=== PATIENT | female | born 1940 | race Caucasian/White ===

== ENCOUNTER 2023-10-22 22:01 | Inpatient (IN) | payer MEDICARE, OTHER, SELFPAY ==
[2023-10-22] VITALS (7 sets, daily range): BP systolic 95–134; BP diastolic 54–70; BMI 21.8
[2023-10-22 14:01] LABS: % Basophils 0.3 % (0-2); % Eosinophils 0.5 % (0-6); % Immature Granulocytes 1.1 % (0-0.5); % Lymphocytes 12.5 % (20.5-51.1); % Neutrophils 68.6 % (42.2-75.2); Absolute Immature Granulocytes 0.1 10^3/uL (0-0.05); Absolute Lymphocytes 0.8 10^3/uL (1.2-3.4); Absolute Monocytes 1.1 10^3/uL (0.1-0.6); Absolute Neutrophils 4.4 10^3/uL (1.4-6.5); Hematocrit 39.6 % (37.0-47.0); Hemoglobin 13.9 g/dL (12.0-16.0); Mean Corp Hgb Conc. 35.1 g/dL (33.0-37.0); Mean Corpuscular Hgb 29.9 pg (27.0-31.0); Mean Corpuscular Volume 85.2 fL (81.0-99.0); Mean Platelet Volume 9.9 fL (7.4-10.4); Nucleated Red Blood Cells % 0 %; Platelet Count 301 10^3/uL (130-400); Red Blood Cell Count 4.65 10^6/uL (4.20-5.40); Red Cell Dist. Width 13.3 % (11.5-14.5); White Blood Cell Count 6.3 10^3/uL (4.8-10.8)
[2023-10-22 14:03] LABS: ALT (SGPT) 21 U/L (0-35); AST (SGOT) 26 U/L (14-36); Albumin 3.7 g/dl (3.5-5.0); Alkaline Phosphatase 72 U/L (38-126); Blood Urea Nitrogen 37 mg/dl (7-17); Calcium 9.4 mg/dl (8.4-10.2); Carbon Dioxide 21 mmol/L (22-30); Chloride 100 mmol/L (98-107); Glucose 170 mg/dl (70-99); Lipase 47 U/L (23-300); Potassium 4.3 mmol/L (3.5-5.1); Sodium 135 mmol/L (135-145); Total Bilirubin 0.6 mg/dl (0.2-1.3); Total Protein 6.2 g/dl (6.3-8.2); eGFR 33.94
--- NOTE | 2023-10-22 15:31 | ED.GENMED ---
History of Present Illness
General
Chief Complaint: Abdominal Symptoms
Source: patient
Exam Limitations: none
Time Seen by Provider: 10/22/23 15:11
Nursing documentation reviewed up to this point in time: agreed with
History of Present Illness
History of Present Illness:
Patient is an 83-year-old female presents to the ER for evaluation. She reports that she was admitted to [facility] for 5 days and discharged October 11 for colitis and also UTI at the time. She received IV antibiotics for UTI and she was
discharged on Keflex however continues with diarrhea up to 20 times per day. She can barely make it to the bathroom. She does have abdominal pain. Has not she has always had issues with abdominal pain but she reports this is different and worse.
She does complain of decreased appetite. She denies any fever/chills/nausea/vomiting. She denies any urinary frequency urgency or dysuria. She believes her last colonoscopy was 5 years ago.
Past History
Past History
ED Past Medical History: HTN, Hypercholesterolemia and NIDDM
ED Past Surgical History: Cholecystectomy and Gynecological (Transvaginal mesh)
Social History
Tobacco: Non-smoker
Alcohol: None
Personal:
Living: with family
Family History
Family History: Unable to obtain
Review of Systems
Review of Systems
Allergies reviewed?: Yes
All Other Systems: ROS reviewed and negative except as documented in HPI and ROS
Constitutional: Reports no symptoms; Denies fever, fatigue or chills
Respiratory: Reports no symptoms
Cardiac: Reports no symptoms
ABD/GI: Reports abdominal pain and diarrhea
: Reports no symptoms; Denies dysuria, flank pain, incontinence or urgency
Musculoskeletal: Reports no symptoms
Skin: Reports no symptoms
Phy Exam
General Physical Exam
General Presentation: no apparent distress
General Skin: warm and dry
General Habitus: elderly
General Mental: alert
General Hydration: dry mucous membranes
Cardiovascular Exam
Cardiovascular Exam: regular rate/rhythm, no murmur and normal peripheral pulses
Pulmonary Exam
Pulmonary Exam: lungs clear and no respiratory distress
Gastrointestinal Exam
Gastrointestinal Exam: soft and other ( + lower abd tenderness + left side abd tenderness )
Neurological Exam
Neurological Exam: alert and oriented x3
Musculoskeletal Exam
Musculoskeletal Exam: full ROM
Skin Exam
Skin Exam: normal color and warm/dry
Psychiatric Exam
Psychiatric Exam: normal mood/affect
Course
Orders/Labs/Results
Orders:
Orders
10/22/23 Breakfast
Clear Liquid
10/22/23 13:32
Complete Blood Count/With Diff Urgent
Comprehensive Metabolic Panel Urgent
Lipase Urgent
10/22/23 15:33
CT Abd/pel W Iv And Oral Contr Urgent
Comment:
Reason For Exam: abd pain diarrhea
Iohexol [Omnipaque] See Protocol PO NOW STA
10/22/23 15:36
Stool Culture Urgent
CHERELLE Source: Feces/Stool
Specimen Description:
Date Specimen was Collected: 10/22/23
Time Specimen was Collected: 19:39
0.9% Sodium Chloride 1000 ml [Nss] 1,000 ml IV BOLUS
10/22/23 15:38
C DIFF [C difficile Antigen & Toxins] Urgent
CHERELLE Source: Feces/Stool
Specimen Description:
Date Specimen was Collected: 10/22/23
Time Specimen was Collected: 19:39
10/22/23 21:17
Norovirus by PCR Stat
CHERELLE Source: Feces/Stool
Specimen Description:
10/22/23 21:19
Admit/Transfer Patient As Directed
Co-Sign Provider:
Level of Care: Inpatient admission
Assign to:: Medical/Surgical
Physician / Group: colby
Diagnosis: pancolitis
Reason for Hospitalization: pancolitis
Expected length of stay greater than two midnights?: Yes
ELOS- Estimated Length of Stay in days: 3
I certify the patient meets the requirements for IP care: Yes
PRN Pain Medication Management As Directed
May give lesser potent ordered pain med per pt: Yes
preference::
Protocol:: Medication orders for pain may be administered in a
manner that supports deferring to patient preference
when the pt is:
- Requesting an ordered lesser potent pain medication.
Least to most potent pain medications are defined
as: acetaminophen < NSAID < tramadol < opioids
(morphine, oxycodone, hydromorphone).
- Requesting a lesser dose of the same medication IF
ORDERED.
- Requesting a less intrusive route of administration
if both routes are prescribed by the provider (PO <
IV).
10/22/23 21:20
Code Status As Directed
Resuscitation Status: Full Code
Abnormal Lab Results
10/22/23
13:32
Abs Immat Gran (auto) 0.1 H 10^3/uL
(0-0.05)
Absolute Lymphs (auto) 0.8 L 10^3/uL
(1.2-3.4)
Absolute Monos (auto) 1.1 H 10^3/uL
(0.1-0.6)
Immature Gran % 1.1 H %
(0-0.5)
Lymphocytes % 12.5 L %
(20.5-51.1)
Monocytes % 17.0 H %
(1.7-9.3)
Carbon Dioxide 21 L mmol/L
(22-30)
BUN 37 H mg/dl
(7-17)
Creatinine 1.5 H mg/dL
(0.6-1.0)
Glucose 170 H mg/dl
(70-99)
Total Protein 6.2 L g/dl
(6.3-8.2)
10/22/23 13:32
10/22/23 13:32
Vital Signs
Initial and Last Documented VS:
Initial Vital Signs
Temp Pulse Resp BP Pulse Ox
98.5 F 102 20 110/69 96
10/22/23 13:19 10/22/23 13:19 10/22/23 13:19 10/22/23 13:19 10/22/23 13:19
Last Documented Vital Signs
Temp Pulse Resp BP Pulse Ox
98.5 F 74 16 125/63 98
10/22/23 13:19 10/22/23 23:22 10/22/23 23:22 10/22/23 23:18 10/22/23 23:18
MDM/Problems Addressed
Differential Diagnosis Includes:
Not limited to dehydration colitis diverticulitis C. difficile
MDM/Problems Addressed:
Patient is an 83-year-old female who complains of several weeks of diarrhea abdominal pain. Was admitted to [facility] recently had colitis but was treated with antibiotics for UTI. Patient presents with over 20 episodes of diarrhea per day
recently and complains of lower abdominal pain. She denies any fever she is afebrile. White count normal patient appears dry on exam with increased BUN to 37 creatinine 1.5 given fluids here in the ER. CAT scan shows pancolitis with extensive
wall thickening and stranding throughout the colon.
With pancolitis and significant episodes of diarrhea with dehydration will admit . no stool cx obtained as pt went in toilet instead . I did hold off on ordering antibx, d/c with admitting hospitalist.
*Radiology
Radiology exam reviewed: radiology read reviewed
*Pulse Oximetry
Patient hypoxic: no
*Critical Care Note
Total Time (30-74mins, 75-104mins- exclusive of procedures): Not Applicable
ED Attending Note
-
Portions of this chart may have been created with voice recognition software.� Occasional wrong word or��sound alike� substitutions may have occurred due to the inherent limitations of voice recognition software.
Discharge Plan
Departure
Patient Disposition: Admit
Date of Disposition: 10/22/23
Time of Disposition: 20:40
Admit to: Med/Surg
Admit to doctor: hospitalist
Presentation/result/management discussed w/ accepting MD/DO: Hospitalist
Patient with high blood pressure during this ER visit?: No
Condition: Fair
Covid-19: Not Applicable
Discharge Problem:
Colitis, Acute dehydration
Interventions
Interventions:
*Risk Screen - Suicide Last Done: 10/22/23 13:19
*General Assessment Last Done: 10/22/23 13:19
*Neglect/Abuse Screening Last Done: 10/22/23 13:19
ED- Fall Risk Assessment Last Done: 10/22/23 16:57
MG-Wmzrnh-Vfkhwnpyxo Assessment Last Done: 10/22/23 23:15
[2023-10-22] MEDS: OMNIPAQUE 50 ML PO (16:18)
[2023-10-22] MEDS: NSS 1000 IV (16:18)
--- NOTE | 2023-10-22 20:46 | HPS.HSE ---
Family Physician
-
Family Physician: Donte Cramer MD
Chief Complaint
-
diarrhea
History of Present Illness
83 year old with PMH for HTN, HLD, type 2 DM presented to us with worsening diarrhea for past few days. patient was admitted to [facility] with colitis and UTI. she was discharged on . she was getting abx intravenous as well as sent home
on Keflex. she felt little better in the beginning. her diarrhea got worsened for past few days. she is complaining of lower abdominal pain. stated poor oral intake. lost about 15lb. stated nausea. denied vomiting. denied fever, chills, chest pain,
sob. denied CAVAZOS, dizzy or syncopal episode. denied dysuria or hematuria.
CT with pancolitis. admitting for further management.
Medical History
Past Medical History
Past Medical History: Reports Other
Additional Past Medical History:
hyperlipidemia
type 2 DM
htn
Past Surgical History: Reports Other
Additional Past Surgical History:
cholecystectomy
hysterectomy
prolapsed bladder
vaginal mesh sling
left knee replacement
left hip replcement
Social History
Tobacco: Non-smoker
Alcohol: None
Drug: None
Personal:
Living: With Family
Family History
Family History: Not pertinent
Allergies / Home Medications
Allergies reflects when Allergies were last updated in [facility].
Home Medications with original date entered in [facility]
Allergy/Medication List:
Allergies
Allergy/AdvReac Type Severity Reaction Status Date / Time
No Known Allergies Allergy Verified 10/22/23 13:19
Home Medications
pravastatin 20 mg tablet 20 mg PO HS 10/22/23
Review of Systems
-
Constitutional: Reports No Symptoms
EENT: Reports No Symptoms
Respiratory: Reports No Symptoms
Cardiac: Reports No Symptoms
Abdomen/GI: Reports Abdominal Pain, Nausea and Diarrhea
: Reports No Symptoms
Musculoskeletal: Reports No Symptoms
Skin: Reports No Symptoms
Neurological: Reports No Symptoms
Endocrine: Reports No Symptoms
Hematologic/Lymphatic: Reports No Symptoms
Psych: Reports No Symptoms
Physical Exam
Vital Signs
Vital Signs
Temp Pulse Resp BP Pulse Ox
98.5 F 78 18 120/54 99
10/22/23 13:19 10/22/23 19:44 10/22/23 19:44 10/22/23 19:44 10/22/23 19:44
Physical Exam
General: Well Developed, Well Nourished and No Apparent Distress
HEENT: NormoCephalic, Moist mucous membranes and Atraumatic
Respiratory: Clear
Cardiac: S1/S2 and Regular Rhythm; No Murmur or Rub
GI: Soft, Non Distended, Normal Bowel Sounds and Tender; No Organomegaly
Rectal: Deferred by Provider
Musculoskeletal: No Clubbing, No Cyanosis and No Edema
Skin: No Rash
Neuro: AO x 3 and Nonfocal/grossly intact
Psych: Calm
Laboratory Results
-
10/22/23 13:32
10/22/23 13:32
Laboratory Results
Total Bilirubin 0.6 mg/dl (0.2-1.3) 10/22/23 13:32
AST 26 U/L (14-36) 10/22/23 13:32
ALT 21 U/L (0-35) 10/22/23 13:32
Alkaline Phosphatase 72 U/L (38-126) 10/22/23 13:32
Lipase 47 U/L (23-300) 10/22/23 13:32
Data Reviewed
-
CT Scan: Report Reviewed by me
Lab Data: Labs Reviewed by me
Impression/Plan
-
#abdominal pain associated with diarrhea likely from pancolitis
-stool culture sent from ER
-stool for C diff, culture and norovirus
-CT with abdomen pelvis with extensive wall thickening and stranding throughout the colon consistent with pancolitis.Diffuse osteopenia with compression deformities of the L2 and L4 vertebral bodies. The L2 vertebral body appears stable from 2019
however the L4 vertebral body appears progressed since then.1.6 cm hypodensity within the left adnexa, possibly related to decreased size of the previously seen cystic lesion in the left adnexa which previously measured 10.3 cm.
-clear liquid diet
-fluids continued for hydration
#acute kidney injury/metabolic acidosis likely from dehydration
-cr 1.5,BUN 31, co2 15
-normal saline continued
-BMP in am
#HLD
-statin continued
#DVT prophylaxis
-heparin sq
#CODE status
-full code
--- NOTE | 2023-10-22 22:37 | W.PN.UPDATE ---
Update Note
Progress Note Update
This is an addendum to the H&P written by Grace Dolan on 10/22/2023.� Patient seen and examined independently with NETWORK DESIGN ARCHITECT.
83-year-old female past medical history of hypertension, hypercholesteremia, diabetes, recently admitted at [facility] for 5 days discharged on October 11 for colitis and UTI.� She was treated with IV antibiotics and discharged on Keflex with
improvement in symptoms which she finished a week ago but again started having watery diarrhea up to 20 times per day with bilateral lower quadrant abdominal pain around a week ago.
Labs show MARCUS.� CT abdomen pelvis shows extensive wall thickening/stranding throughout the colon consistent with pancolitis.
High suspicion for C. difficile.
Clear liquid diet.� IV fluids.� Check C. difficile, stool culture, norovirus.
[2023-10-23] MEDS: NSS 1000 IV ×2 (01:06→12:16)
--- NOTE | 2023-10-23 03:05 | PTCARENOTE ---
Received pt fromt he Ed via stretcher, steady gait into the room to the hospital bed. Pt AAOx3, offers no complaints aside from frequent diarrhea. Assessment as documented. NSS initiated @ 80mL/hr per order, see MAR. Pt oriented to unit and call
nick.
[2023-10-23] MEDS: PRAVACHOL PO (07:08)
[2023-10-23 07:30] VITALS: BP 115/62
[2023-10-23 07:50] LABS: Glucose - Point of Care 77 mg/dl (70-99)
[2023-10-23] MEDS: HEPARIN 5000 UNITS SC ×2 (07:53→21:23)
[2023-10-23 08:11] LABS: Hematocrit 32.6 % (37.0-47.0); Hemoglobin 11.6 g/dL (12.0-16.0); Mean Corp Hgb Conc. 35.6 g/dL (33.0-37.0); Mean Corpuscular Hgb 30.3 pg (27.0-31.0); Mean Corpuscular Volume 85.1 fL (81.0-99.0); Mean Platelet Volume 9.6 fL (7.4-10.4); Platelet Count 215 10^3/uL (130-400); Red Blood Cell Count 3.83 10^6/uL (4.20-5.40); Red Cell Dist. Width 13.5 % (11.5-14.5); White Blood Cell Count 4.5 10^3/uL (4.8-10.8)
[2023-10-23 08:28] LABS: Blood Urea Nitrogen 26 mg/dl (7-17); Calcium 8.6 mg/dl (8.4-10.2); Carbon Dioxide 19 mmol/L (22-30); Chloride 107 mmol/L (98-107); Estimated Creatinine Clearance 40 ml/min; Glucose 76 mg/dl (70-99); Potassium 4.3 mmol/L (3.5-5.1); Sodium 137 mmol/L (135-145); eGFR 49.24
--- NOTE | 2023-10-23 08:52 | W.PN.HOSP.TC ---
Addendum entered and electronically signed by Junito Cornell MD 10/24/23 00:05:
Attending Addendum-
I saw and evaluated the patient. I reviewed the resident�s note and agree with findings and plan as documented in the resident�s note. Sub: diarrhea resolving, non bloody, seen with and daughter present. H/O reviewed records from [place]
and PCP. multiple recent rounds of abx for recurrent UTI. recently DCd from [place] for pyelo on keflex. No urinary sxs. Full 12 point ROS reviewed and negative except as documented Exam: Vitals reviewed in chart GEN-NAD heart RRR Lungs clear abd
osft mild TTP epigastric area LE no edema
# Severe C Diff pancolitis
- no signs of TM
- start vanco 125 PO QID x 10 days
- CT with abdomen pelvis- pancolitis
- advance diet
- fluids continued for hydration
- Appreciate ID input
# Leukocytosis
- resolved
- repeat CBC in am
# Prediabetes
- hba1c 6.1
- f/u as OP with PCP
#MARCUS
- prerenal
- resolving 1.5->1.1
- normal saline continued
- BMP in am
# Recurrent UTI-
- repeat UA with reflex
#HLD
- cont pravastatin
#DVT prophylaxis
-heparin sq
#CODE status
-full code
Dispo Likely DC home soon diarrhea resolving
Time spent coordinating care, review of plan of care with resident, personally reviewed records in EMR, med rec, consults, notes, labs, radiology, d/w nursing and ID � 59 mins
Original Note:
Today's Communication/Plan
-
Started on PO Vancomycin, advanced to regular solid diet as tolerated. Monitor w/ serial abdominal exams and re-evaluate in the AM.
Assessment / Plan
Assessment / Plan
83 yo female with a PMHx of HTN, HLD, DM-II
##Severe C. Difficile Infection
#Pancolitis
#Dehydration secondary to Nausea/Vomiting/Poor Oral intake
-Stool culture + for C. Difficile
-CT Abdomen pelvis - extensive wall thickening and stranding throughout the colon consistent with pancolitis. Diffuse osteopenia with compression deformities of the L2 and L4 vertebral bodies. The L2 vertebral body appears stable from 2019 however
the L4 vertebral body appears progressed since then.1.6 cm hypodensity within the left adnexa, possibly related to decreased size of the previously seen cystic lesion in the left adnexa which previously measured 10.3 cm.
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
- Advanced to general diet as tolerated (Fiber will help her dysbiosis)
- Serial abdominal exams
- IVF Fluids increased to 100ml/hr
#Leukopenia
- WBCs 4.5 today,
- SIRS negative
- Will continue to observe with repeat CBC in the AM
#MARCUS/Metabolic Acidosis likely from dehydration
- Cr today is 1.1, down from 1.5
- IVF NS @ 100 ml/hr
- Follow up BMP in the AM
#Ovarian Cyst?
- Incidental finding on CT, decreased since prior study
- Stable, will monitor.
#HLD
- Continue home medication Pravastatin
#DM Type II
- Patient's A1C% was 6.1
- Glucose on admission 170, came down to 76
- POC glucose checks
- regular diet as above
Dispo: Med/Surg
DVT PPE: Heparin SQ
Diet: Regular Diet
Code: Full Code
Anticipated Discharge: > 48 hours
Subjective/Interval History
-
No acute overnight events.
Approx. 250ml of Liquid stool around 1am. No new liquid bowel movements since then. No new fevers, or chills. Ambulating well.
Objective Data
-
Labs:
Laboratory Results
10/23/23
07:17
WBC 4.5 L
Hgb 11.6 L
Hct 32.6 L
Plt Count 215 D
Sodium 137
Potassium 4.3
Chloride 107
Carbon Dioxide 19 L
BUN 26 H
Creatinine 1.1 H
Glucose 76
Calcium 8.6
Vital Signs:
Vital Signs
Temp Pulse Resp BP Pulse Ox
97.6 F 84 16 115/62 99
10/23/23 07:30 10/23/23 07:30 10/23/23 07:30 10/23/23 07:30 10/23/23 07:30
I&O
10/22/23 10/23/23 10/24/23
06:59 06:59 06:59
Intake Total 320 / 320
Output Total 250 / 250
Balance 70 / 70
Review of Systems
-
History Source: Patient
All other systems: Reviewed and negative
Constitutional: Reports Weight Loss and No Appetite
EENT: Reports No Symptoms Reported
Respiratory: Reports No Symptoms
Cardiac: Reports No Symptoms
Abdomen/GI: Reports Abdominal Pain and Diarrhea
Genitourinary: Reports No Symptoms
Musculoskeletal: Reports No Symptoms
Skin: Reports No Symptoms
Neuro: Reports No Symptoms
Physical Exam
-
General: Well Developed, Well Nourished and No Apparent Distress
HEENT: Normocephalic, Atraumatic, Moist Mucous Membranes (Dry oral mucosa ), [place] Conjunctivae and PERRLA
Respiratory: Clear to Auscultation
Cardiac: Regular Rhythm and S1/S2
GI: Soft, Nontender, Nondistended and Normal Bowel Sounds (hyper active bowel sounds)
Musculoskeletal: No Clubbing, No Cyanosis and No Edema
Skin: Warm and Dry
Neuro: Awake, Alert and Oriented
--- NOTE | 2023-10-23 10:31 | CON.ID ---
Consultation
-
Date/Time Consultation Requested: 10/23/23 9:07
Date/Time Consultation Performed: 10/23/23 11:59
Requesting Provider: Dr Marsh
Performing Provider: Dr Tamayo
Reason for Consultation: C.Difficile infection
Chief Complaint / Past History
Chief Complaint
diarrhea
History of Present Illness
Ms Bravo is an 83 year old female with history of Dm2 recent UTI treated at [facility] for UTI and possibly colitis. I am not able to get a clear history from the patient, she is not clear on whether she had colitis or C difficile at
[place], though she recalls a UTI initially on IV antibiotics and completed the course with keflex. Unclear duration of symptoms. Majority of history from chart review. Reporting 20+ liquid stools per day prompting her to come here. I have
requested records from [place].
Since arrival here she has been afebrile, bp stable, wbc initially 6.3 now 4.5, hgb 11.6, plt 215, no L shift on arrival, cr 1.5 on arrival from baseline of 0.9, cr now 1.1, t bili 0.6, ast 26, alt 21, alk phos 72, CT a/p pancolitis without evidence
of megacolon, c diff toxin/ag positive, currently on oral vanc 125 mg PO qid, ID is consulted for assistance with management.
Past History
Additional Past Medical History:
hyperlipidemia
type 2 DM
htn
Additional Past Surgical History:
cholecystectomy
hysterectomy
prolapsed bladder
vaginal mesh sling
left knee replacement
left hip replcement
Allergy History:
No Known Allergies Allergy (Verified 10/22/23 13:19)
Medications Reviewed: Yes
Social History
Tobacco: Non-Smoker
Alcohol: None
Drug: None
Family History
Family History: Not Pertinent
Review of Systems
Review of Systems
General: Negative Fever or Chills
All systems: All other systems were reviewed and were negative
Vital Signs
Temp Pulse Resp BP Pulse Ox
97.6 F 84 16 115/62 99
10/23/23 07:30 10/23/23 07:30 10/23/23 07:30 10/23/23 07:30 10/23/23 07:30
Physical Exam
Physical Exam
Constitutional: No Acute Distress
Cardiovascular: Regular Rate and S1/S2; Negative Murmur or Rub
Pulmonary: Clear and Symmetric; Negative Wheezes, Rales or Rhonchi
Gastrointestinal: Soft, Tender, Non Distended, Normal Bowel Sounds and Other (some guarding, unclear if voluntary )
Skin: Warm and Dry; Negative Rash or Jaundice
Neurological: Awake
Lab / Diagnostic Study Results
10/23/23 07:17
10/23/23 07:17
Abs Immat Gran (auto) 0.1 10^3/uL (0-0.05) H 10/22/23 13:32
Absolute Neuts (auto) 4.4 10^3/uL (1.4-6.5) 10/22/23 13:32
Absolute Lymphs (auto) 0.8 10^3/uL (1.2-3.4) L 10/22/23 13:32
Absolute Monos (auto) 1.1 10^3/uL (0.1-0.6) H 10/22/23 13:32
Absolute Basos (auto) 0.0 10^3/uL (0-0.2) 10/22/23 13:32
Immature Gran % 1.1 % (0-0.5) H 10/22/23 13:32
Neutrophils % 68.6 % (42.2-75.2) 10/22/23 13:32
Lymphocytes % 12.5 % (20.5-51.1) L 10/22/23 13:32
Monocytes % 17.0 % (1.7-9.3) H 10/22/23 13:32
Eosinophils % 0.5 % (0-6) 10/22/23 13:32
Basophils % 0.3 % (0-2) 10/22/23 13:32
Microbiology Results
Micro:
10/23/23 00:54 C. difficile GDH Antigen & Toxins - Final
Feces/Stool Toxigenic C.difficile Positive
10/23/23 00:54 - Pending
Feces/Stool
10/23/23 00:54 Salmonella/Shigella Culture - Pending
Feces/Stool Campylobacter Culture - Pending
Shiga Toxin Test - Pending
Assessment / Plan
C Difficile Infection - mild
- recent antibiotic exposure noted
- agree with oral vancomycin 125 mg PO QID plan 10 day course
- regular diet preferred to prevent ongoing dysbiosis
- probiotics
- enhanced contact precautions
- records requested from [facility]
- follow clinically
[2023-10-23 10:55] LABS: Glycohemoglobin (HgbA1c) 6.1 % (4.0-5.6)
--- NOTE | 2023-10-23 11:05 | CM ---
Reviewed the chart notes and spoke with the patient at the bedside. The patient resides with her spouse in a first floor condo, no steps to enter. The patient reports no DME/VN/SNF in the past. The patient confirmed her pharmacy of choice [facility] the
[facility]. CM continues to be available to patient/family and is monitoring medical plan for needs at discharge.
Plan: Discharge to home when medically stable. No needs anticipated.
[2023-10-23 12:01] LABS: Glucose - Point of Care 125 mg/dl (70-99)
[2023-10-23] MEDS: FIRVANQ 125 MG PO ×2 (12:14→17:01)
[2023-10-23 15:40] VITALS: BP 122/57
[2023-10-23] MEDS: VISBIOME 2 CAP PO (17:01)
[2023-10-23 17:13] LABS: Glucose - Point of Care 105 mg/dl (70-99)
--- NOTE | 2023-10-23 18:41 | PTCARENOTE ---
Patient tolerated clear liquid diet throughout shift, states mild lower abdominal tenderness throughout shift unchanged and without need for pain medication. Diet upgraded to regular diet per MD order, patient updated on plan of care.
[2023-10-23] MEDS: PRAVACHOL 20 MG PO (21:27)
[2023-10-23 21:55] LABS: Glucose - Point of Care 161 mg/dl (70-99)
[2023-10-23 23:29] VITALS: BP 118/57
[2023-10-24] MEDS: FIRVANQ 125 MG PO ×4 (00:27→17:01)
[2023-10-24] MEDS: NSS 1000 IV (02:12)
[2023-10-24 07:15] LABS: % Eosinophils 3.1 % (0-6); % Immature Granulocytes 3.9 % (0-0.5); % Monocytes 17.4 % (1.7-9.3); % Neutrophils 49.6 % (42.2-75.2); Absolute Eosinophils 0.1 10^3/uL (0-0.7); Absolute Immature Granulocytes 0.2 10^3/uL (0-0.05); Absolute Monocytes 0.7 10^3/uL (0.1-0.6); Absolute Neutrophils 1.9 10^3/uL (1.4-6.5); Hematocrit 31.6 % (37.0-47.0); Hemoglobin 11.1 g/dL (12.0-16.0); Mean Corp Hgb Conc. 35.1 g/dL (33.0-37.0); Mean Corpuscular Hgb 30.2 pg (27.0-31.0); Mean Corpuscular Volume 85.9 fL (81.0-99.0); Mean Platelet Volume 9.6 fL (7.4-10.4); Nucleated Red Blood Cells % 0 %; Platelet Count 237 10^3/uL (130-400); Red Blood Cell Count 3.68 10^6/uL (4.20-5.40); Red Cell Dist. Width 13.8 % (11.5-14.5); White Blood Cell Count 3.8 10^3/uL (4.8-10.8)
[2023-10-24 07:23] LABS: Urine Albumin Negative (Neg - Trace); Urine Bilirubin Negative (Negative); Urine Character Clear (Clear); Urine Color Yellow; Urine Glucose Negative (Negative); Urine Ketone Negative (Negative); Urine Leukocyte Negative (Negative); Urine Nitrite Negative (Negative); Urine Occult Blood Negative (Negative); Urine Urobilinogen Negative (Neg - 1+)
[2023-10-24 07:25] VITALS: BP 109/48
[2023-10-24 07:44] LABS: Glucose - Point of Care 128 mg/dl (70-99)
[2023-10-24 07:48] LABS: Total Bilirubin 0.2 mg/dl (0.2-1.3)
[2023-10-24 07:49] LABS: ALT (SGPT) 14 U/L (0-35); AST (SGOT) 17 U/L (14-36); Albumin 2.6 g/dl (3.5-5.0); Alkaline Phosphatase 62 U/L (38-126); Blood Urea Nitrogen 18 mg/dl (7-17); Calcium 8.5 mg/dl (8.4-10.2); Carbon Dioxide 23 mmol/L (22-30); Chloride 110 mmol/L (98-107); Estimated Creatinine Clearance 49 ml/min; Glucose 125 mg/dl (70-99); Potassium 4.4 mmol/L (3.5-5.1); Sodium 141 mmol/L (135-145); Total Protein 4.8 g/dl (6.3-8.2); eGFR > 60.00
[2023-10-24] MEDS: HEPARIN 5000 UNITS SC (08:23)
[2023-10-24] MEDS: VISBIOME 2 CAP PO (08:23)
--- NOTE | 2023-10-24 09:31 | W.PN.ID1 ---
Date of Service
Date of Service: October 24, 2023
Today's Communication
- c/w with oral vancomycin 125 mg PO QID plan 10 day course
Assessment / Plan
C Difficile Infection - mild, initial infection
- stools becoming formed
- c/w with oral vancomycin 125 mg PO QID plan 10 day course
- regular diet preferred to prevent ongoing dysbiosis; encouraged cultured foods
- probiotics
- enhanced contact precautions
- follow clinically
Chief Complaint
-: C-diff
Subjective / Review of Systems
afebrile
no events overnight
BMs becoming soft, loose
no records scanned into [facility] though reportedly reviewed by primary team - note several courses of antibiotics for uti reported
records from [facility] on the chart reviewed, patient was diagnosed with colitis, not checked for c diff, it was felt to be self limited. She was found to have possible UTI with pyuria and urine culture with 100K lactobacillus - MD prescribed keflex
for this indication.
UA here negative
reports no further abdominal pain today
Vital Signs / Physical Exam
Vital Signs
Vital Signs
Temp Pulse Resp BP Pulse Ox
97.4 F 72 16 109/48 98
10/24/23 07:25 10/24/23 07:25 10/24/23 07:25 10/24/23 07:25 10/24/23 07:25
Physical Exam
Constitutional: No Acute Distress
Cardiovascular: Regular Rate and S1/S2; Negative Murmur or Rub
Pulmonary: Clear and Symmetric; Negative Wheezes or Rales
Gastrointestinal: Soft, Non Tender, Non Distended and Normal Bowel Sounds
Genito-Urinary: Negative Suprapubic Tenderness
Skin: Warm and Dry; Negative Rash or Jaundice
Lines: PIV
Objective Data
Lab Data
Lab Results
10/24/23 06:33
10/24/23 06:33
Estimated Creat Clear 49 ml/min 10/24/23 06:33
Total Bilirubin 0.2 mg/dl (0.2-1.3) 10/24/23 06:33
AST 17 U/L (14-36) 10/24/23 06:33
ALT 14 U/L (0-35) 10/24/23 06:33
Alkaline Phosphatase 62 U/L (38-126) 10/24/23 06:33
Most recent labs reviewed.
Micro Results:
10/23/23 00:54 - Final
Feces/Stool Negative for Norovirus GI and GII.
10/23/23 00:54 C. difficile GDH Antigen & Toxins - Final
Feces/Stool Toxigenic C.difficile Positive
10/23/23 00:54 Salmonella/Shigella Culture - Pending
Feces/Stool Campylobacter Culture - Pending
Shiga Toxin Test - Pending
[2023-10-24 12:20] LABS: Glucose - Point of Care 174 mg/dl (70-99)
--- NOTE | 2023-10-24 12:45 | CM ---
Reviewed the chart notes. Per notes, oral vancomycin 125 mg PO QID plan 10 day course. CM continues to be available to patient/family and is monitoring medical plan for needs at discharge.
Plan: Discharge to home when medically stable. No anticipated needs identified.
--- NOTE | 2023-10-24 14:19 | W.PN.HOSP.TC ---
Addendum entered and electronically signed by Junito Cornell MD 10/25/23 00:07:
Attending Addendum-
I saw and evaluated the patient. I reviewed the resident�s note and agree with findings and plan as documented in the resident�s note. Sub: diarrhea resolved, seen with sons and daughter present. Wants to go home.No urinary sxs. Full 12 point ROS
reviewed and negative except as documented Exam: Vitals reviewed in chart GEN-NAD heart RRR Lungs clear abd soft mild TTP epigastric area LE no edema
# Severe C Diff pancolitis
- no signs of TMC
- cont vanco 125 PO QID x 10 days
- CT with abdomen pelvis- pancolitis
- evelyne diet
- Appreciate ID input
- DC home
# Leukopenia-
- from vanco likely
- monitor as OP
# Prediabetes
- hba1c 6.1
- f/u as OP with PCP
#MARCUS
- resolved
- BMP in am
# Recurrent UTI-
- repeat UA with reflex- NGTD
- f/u uro as OP
#HLD
- cont pravastatin
#DVT prophylaxis
-heparin sq
#CODE status
-full code
Dispo DC home today with family
Time spent coordinating care, DC planning, review of DC plan of care with resident, transition of care, review of records, med rec/scripts sent electronically, consults, notes, d/w consultants, nursing, family, and CM� 35 mins
Original Note:
Today's Communication/Plan
-
D/c to home with 8 days of PO vancomycin to complete a 10 day course. Follow up with PCP 1-2 weeks.
Assessment / Plan
Assessment / Plan
83 yo female with a PMHx of HTN, HLD, DM-II
##Severe C. Difficile Infection
#Pancolitis
#Dehydration secondary to Nausea/Vomiting/Poor Oral intake
-Stool culture + for C. Difficile
-CT Abdomen pelvis - extensive wall thickening and stranding throughout the colon consistent with pancolitis. Diffuse osteopenia with compression deformities of the L2 and L4 vertebral bodies. The L2 vertebral body appears stable from 2019 however
the L4 vertebral body appears progressed since then.1.6 cm hypodensity within the left adnexa, possibly related to decreased size of the previously seen cystic lesion in the left adnexa which previously measured 10.3 cm.
- Radiologist Physician. 1.5, meeting criteria for Severe CDI
- Advanced to general diet as tolerated (Fiber will help her dysbiosis)
- IVF d/c
- Day 2 of Vancomycin, OK to D/c with 8 more days of PO vancomycin to complete a 10 day course.
#Leukopenia, possibly secondary to vancomycin
- WBCs 3.8
- SIRS negative, afebrile
- continue to observe
#MARCUS/Metabolic Acidosis likely from dehydration (resolved)
- Cr 1.5 to 1.1, now 0.9
#Ovarian Cyst?
- Incidental finding on CT, decreased since prior study
- Stable.
#HLD
- Continue home medication Pravastatin
#DM Type II
- Patient's A1C% was 6.1
- Glucose on admission 170, came down to 76
- POC glucose checks
- diet as above
Dispo: Med/Surg
DVT PPE: Heparin SQ
Diet: Regular Diet
Code: Full Code
Anticipated Discharge: Today
Subjective/Interval History
-
Seen in the AM. one episode of loose stool overnight, w/o blood or abdominal pain. denies nausea & vomiting. No overnight fevers, chills, lightheadedness or dizziness. reports some pain and burning when urinating, but no blood or discharge.
Objective Data
-
Labs:
Laboratory Results
10/24/23
06:33
WBC 3.8 L
Hgb 11.1 L
Hct 31.6 L
Plt Count 237
Sodium 141
Potassium 4.4
Chloride 110 H
Carbon Dioxide 23
BUN 18 H
Creatinine 0.9
Glucose 125 H
Calcium 8.5
Total Bilirubin 0.2
AST 17
ALT 14
Alkaline Phosphatase 62
Vital Signs:
Vital Signs
Temp Pulse Resp BP Pulse Ox
97.4 F 72 16 109/48 98
10/24/23 07:25 10/24/23 07:25 10/24/23 07:25 10/24/23 07:25 10/24/23 10:24
I&O
10/23/23 10/24/23 10/25/23
06:59 06:59 06:59
Intake Total 320 / 320 2640 / 2640
Output Total 250 / 250 100 / 100
Balance 70 / 70 2540 / 2540
Review of Systems
-
History Source: Patient
All other systems: Reviewed and negative
Constitutional: Reports No Symptoms
EENT: Reports No Symptoms Reported
Respiratory: Reports No Symptoms
Cardiac: Reports No Symptoms
Abdomen/GI: Reports Other (Loose stool)
Breast: Reports No Symptoms
Genitourinary: Reports Dysuria and Frequency
Musculoskeletal: Reports No Symptoms
Skin: Reports No Symptoms
Neuro: Reports No Symptoms
Physical Exam
-
General: Well Developed, Well Nourished, No Apparent Distress and Comfortable
HEENT: Normocephalic, Atraumatic, Moist Mucous Membranes, Chicken Conjunctivae and PERRLA
Respiratory: Clear to Auscultation
Cardiac: Regular Rhythm and S1/S2
Breast: Deferred by me
GI: Soft, Nontender, Nondistended and Normal Bowel Sounds
Musculoskeletal: No Clubbing, No Cyanosis and No Edema
Skin: Warm and Dry
Neuro: Awake, Alert and Oriented
[2023-10-24 15:15] VITALS: BP 111/51
--- NOTE | 2023-10-24 16:38 | W.DCSUMMARY ---
Addendum entered and electronically signed by Junito Cornell MD 10/25/23 00:08:
Read, reviewed, and agree. See same day progress note for additional details.
Alexsander Cornell MD
Original Note:
Documented by User: Will Marsh MD, Resident 10/24/23 17:30
Discharge Summary
Discharge Data
Date of Admission: 10/22/23
Date of Discharge: 10/24/23
-
Pending Results: No
Hospital Course
Discharging Physician : Dr. Will Marsh, Dr. Junito Cornell
Disposition : Home
Primary care physician : Donte Cramer MD
Principal Discharge diagnosis :
Severe C. Difficile Infection
Pancolitis
Dehydration secondary to Nausea/Vomiting/Poor Oral intake
Leukopenia, possibly secondary to vancomycin
MARCUS/Metabolic Acidosis likely from dehydration
Chronic Discharge diagnosis :
Ovarian Cyst, stable
HLD
DM Type II
Hospital Course :
83 year old woman who presented to the emergency department with abdominal pain, decreased appetite and watery bowel movements of up to 20 times per day for the past few days. She has a history of prior antibiotic use for treatment of UTI and a
recent hospitalization at [facility] for treatment of Colitis. In the ED she was found to have clinical signs of dehydration and an MARCUS/ metabolic acidosis (cr 1.5,BUN 31, co2 15). She was given IVF and stool cultures were sent. CT Abd/Pelvis showed
pancolitis and a small cystic lesion in the ovary as described below.
On hospital day 1, stool cultures came back positive for C. Difficile Antigen & toxin. Vancomycin 125mg PO QID was started and the patient was put on isolation precautions. She reported improving abdominal pain with decreasing frequency of loose,
watery bowel movements. Blood work at that time show improving creatinine, BUN and CO2 levels. She was found to be leukopenic at this time, but remained afebrile and showed no other signs of systemic inflammatory response.
On Hospital day 2, she remained afebrile overnight, was tolerating a liquid diet, and repeat lab work showed resolution of MARCUS, no signs of dehydration & a stable WBC count.
She was deemed stable and was discharged home on Oral Vancomycin 125mg QID to be taken for 8 more days so as to complete a 10 day course.
Important imaging findings :
CT Abd/pel W Iv And Oral Contr:
There is extensive wall thickening and stranding throughout the colon consistent with pancolitis.
Diffuse osteopenia with compression deformities of the L2 and L4 vertebral bodies. The L2 vertebral body appears stable from 2019 however the L4 vertebral body appears progressed since then.
1.6 cm hypodensity within the left adnexa, possibly related to decreased size of the previously seen cystic lesion in the left adnexa which previously measured 10.3 cm.
Discharge Plan
-
Patient Disposition: Home (Routine Discharge)
Discharge Diagnosis/Procedures: Severe C. Difficile Infection, pancolitis, MARCUS w/ Metabolic Acidosis, Leukopenia
Condition: Good
Diet: Low Residue
Activity: No restrictions
Driving Restrictions: As prior to admission
Bathing Restrictions: None
Instructions: C. difficile infection
Referrals:
Donte Cramer MD [Family Provider] - in one week
Additional Discharge Medication Instructions: Vancomycin 125mg 1 capsule to be taken 4 times per day, for 8 days
Prescriptions:
New
vancomycin [Vancocin] 125 mg capsule
125 mg PO QID 8 Days Qty: 32 0RF
Rx Instructions:
Take 1 Capsule, 4 times per day, for 8 days
Continued
pravastatin 20 mg Tablet
20 mg PO HS
Discharge Orders:
Discharge Patient (As Directed); Ordered 10/24/23
Ordered By: Will Marsh
Discharge Date and Time
Discharge Date/Time: 10/24/23 17:50
Print Language: MACEDONIAN

Documented by User: Junito Cornell MD 10/25/23 00:04
Discharge Summary
Discharge Data
Date of Admission: 10/22/23
Date of Discharge: 10/25/23
Discharge Plan
-
Patient Disposition: Home (Routine Discharge)
Discharge Diagnosis/Procedures: Severe C. Difficile Infection, pancolitis, MARCUS w/ Metabolic Acidosis, Leukopenia
Condition: Good
Diet: Low Residue
Activity: No restrictions
Driving Restrictions: As prior to admission
Bathing Restrictions: None
Instructions: C. difficile infection
Referrals:
Donte Cramer MD [Family Provider] - in one week
Additional Discharge Medication Instructions: Vancomycin 125mg 1 capsule to be taken 4 times per day, for 8 days
Prescriptions:
New
vancomycin [Vancocin] 125 mg capsule
125 mg PO QID 8 Days Qty: 32 0RF
Rx Instructions:
Take 1 Capsule, 4 times per day, for 8 days
Continued
pravastatin 20 mg Tablet
20 mg PO HS
Discharge Orders:
Discharge Patient (As Directed); Ordered 10/24/23
Ordered By: Will Marsh
Discharge Date and Time
Discharge Date/Time: 10/24/23 17:50
Print Language: MACEDONIAN
--- NOTE | 2023-10-24 17:27 | PTCARENOTE ---
Patient discharged home. This RN removed patient's IV and reviewed discharge instructions/medications with patient and patient's at the bedside; both verbalized understanding. Patient dressed and gathered belongings in room with assistance
of . Patient being transported home by , taken down to main lobby via staff escort and wheelchair.
== END 2023-10-24 17:50 | disposition home or self-care (01) | DRG 372 ==
LOC: 2 NORTH 22:01
PROVIDERS: Registered Nurse; ADMITTING PHYSICIAN Hospitalist; ATTENDING PHYSICIAN Family Medicine; CONSULT PHYSICIAN Student in an Organized Health Care Education/Training Program; EMERGENCY PHYSICIAN Emergency Medicine; FAMILY PHYSICIAN Family Medicine
DX: A04.72 Enterocolitis due to Clostridium difficile, not specified as recurrent (principal); E87.20 Acidosis, unspecified; N17.9 Acute kidney failure, unspecified; N39.0 Urinary tract infection, site not specified; E78.00 Pure hypercholesterolemia, unspecified; N83.209 Unspecified ovarian cyst, unspecified side; E11.9 Type 2 diabetes mellitus without complications
CPT/HCPCS: 74177; 80048; 80053; 81003; 82962; 83036; 83690; 85025; 85027; 87045; 87046; 87324; 87427; 87449; 87798; 96360; 99285; Q9967

== ENCOUNTER → 2024-09-07 06:53 | Outpatient (REF) | payer MEDICARE, OTHER, SELFPAY | LOC: RCS 06:53 | PROVIDERS: ATTENDING PHYSICIAN Internal Medicine Cardiovascular Disease; FAMILY PHYSICIAN Family Medicine | DX: R06.9 Unspecified abnormalities of breathing (principal); I42.8 Other cardiomyopathies; R94.39 Abnormal result of other cardiovascular function study; R06.02 Shortness of breath | CPT/HCPCS: 78452; 93017; A9500 ==